=== PATIENT | female | born 2000 | race African-American/Black ===

== ENCOUNTER 2021-11-16 18:37 | Observation (INO) | payer MEDICAID, OTHER ==
[~2021-11-16] VITALS: Ht 167.6 cm; Wt 86.2 kg
[2021-11-16] MEDS ORDERED: PNV1TABL76 MT (21:45)
== END 2021-11-16 22:00 | disposition home or self-care (01) ==
LOC: 8 EST LDRP 18:37
PROVIDERS: ADMIT Obstetrics & Gynecology; ATTEND Obstetrics & Gynecology
DX: O36.5930 Maternal care for other known or suspected poor fetal growth, third trimester, not applicable or unspecified (principal); Z3A.36 36 weeks gestation of pregnancy
CPT/HCPCS: 59025; 76815; 76818; G0378; 99281

== ENCOUNTER 2021-11-23 19:24 | Observation (INO) | payer OTHER ==
[~2021-11-23] VITALS: Ht 167.6 cm; Wt 88.5 kg
[~2021-11-23 19:24] MED LIST: PNV1TABL76 MT
== END 2021-11-23 21:45 | disposition home or self-care (01) ==
LOC: 8 EST LDRP 19:24
PROVIDERS: ADMIT Obstetrics & Gynecology; ATTEND Obstetrics & Gynecology
DX: Z34.93 Encounter for supervision of normal pregnancy, unspecified, third trimester (principal); Z3A.37 37 weeks gestation of pregnancy
CPT/HCPCS: 59025; 76815; 76818; 99281; G0378

== ENCOUNTER 2021-11-25 22:39 | Observation (INO) | payer OTHER ==
[~2021-11-25] VITALS: Ht 167.6 cm; Wt 88.5 kg
== END 2021-11-26 00:15 | disposition home or self-care (01) ==
LOC: 8 EST LDRP 22:39
PROVIDERS: ADMIT Obstetrics & Gynecology; ATTEND Obstetrics & Gynecology
DX: O46.93 Antepartum hemorrhage, unspecified, third trimester (principal); O36.8130 Decreased fetal movements, third trimester, not applicable or unspecified; O26.893 Other specified pregnancy related conditions, third trimester; R10.9 Unspecified abdominal pain; Z3A.37 37 weeks gestation of pregnancy
CPT/HCPCS: 99281; G0378; 59025

== ENCOUNTER 2021-11-30 20:32 | Observation (INO) | payer OTHER ==
[~2021-11-30] VITALS: Ht 167.6 cm; Wt 89.8 kg
== END 2021-11-30 22:15 | disposition home or self-care (01) ==
LOC: 8 EST LDRP 20:32
PROVIDERS: ADMIT Obstetrics & Gynecology; ATTEND Obstetrics & Gynecology
DX: O36.5930 Maternal care for other known or suspected poor fetal growth, third trimester, not applicable or unspecified (principal); Z3A.38 38 weeks gestation of pregnancy
CPT/HCPCS: 59025; 76815; 76818; G0378